=== PATIENT | male | born 1970 | race Caucasian/White ===

== ENCOUNTER 2021-01-31 06:10 | Day surgery (SDC) | payer BC ==
[2021-01-31] MEDS ORDERED: Lactated Ringers 1,000 ML IV SCH (06:30)
[2021-01-31] MEDS ORDERED: DIPRIVAN 200 MG/20 ML IV ONE ×2 (07:21→07:47)
[2021-01-31 08:58] VITALS: BP 141/79; PULSE 74; O2SAT 96
--- NOTE | 2021-01-31 14:41 | OP ---
SURGERY DATE: 01/31/2021 SURGERY TIME: 732 PREOPERATIVE DIAGNOSIS: 1. RECTAL PAIN. POSTOPERATIVE DIAGNOSIS: 1. EXTERNAL HEMORRHOIDS. 2. RECTAL POLYP X 2. PROCEDURE: 1. Colonoscopy. SURGEON: Dr. Casper Nuno. ANESTHESIA: MAC by Jonathan Medina CRNA. SPECIMENS: Two hot forceps polypectomies from the rectum. ESTIMATED BLOOD LOSS: Minimal. DESCRIPTION OF PROCEDURE: After informed written consent was obtained, the patient was taken to the endoscopy suite. He was placed in the left lateral decubitus position and anesthesia was titrated to the desired level of consciousness. Digital rectal exam showed significant external hemorrhoids, no internal lesions. The scope was then inserted in the rectum and sequentially the entire colonic mucosa was traversed. The level of the cecum was reached and verified with direct visualization of the ileocecal valve. Upon withdrawal, there were 2 small sessile polyps in the distal sigmoid/rectal region. Those were grasped with forceps, cauterized, and removed in their entirety with no bleeding. Prior to withdrawal, retroflexion was performed and showed minimal internal hemorrhoids. The scope was removed and the patient was transferred to the recovery room in good condition.
== END 2021-01-31 09:08 | disposition home or self-care (01) ==
LOC: SDC 06:10
PROVIDERS: ATTEND Family Medicine
DX: K64.4 Residual hemorrhoidal skin tags (principal); D12.8 Benign neoplasm of rectum
CPT/HCPCS: 88305; J2704

== ENCOUNTER 2022-11-20 13:06 | Day surgery (SDC) | payer BC ==
[2022-11-20] MEDS ORDERED: Sodium Chloride 0.9(Preservative Free) 10 ML IJ ONE (13:07)
[2022-11-20] MEDS ORDERED: DIPRIVAN 200 MG/20 ML IV ONE (13:07)
[2022-11-20] MEDS ORDERED: Lactated Ringers 1,000 ML IV ONE (13:07)
[2022-11-20] MEDS ORDERED: Depo-Medrol 40 MG/ML IM ONE (13:07)
--- NOTE | 2022-11-20 16:36 | XRAY ---
Indication: Right L3-L5 transforaminal [place]. Intraoperative fluoroscopy provided for 26 seconds. 5 digital spot images submitted for interpretation demonstrates posterior needle tip projecting over the expected right L3 and L4 nerve roots. Small amount of contrast injected for needle tip placement. Correlate with intraoperative findings/report.
--- NOTE | 2022-11-20 16:50 | XRAY ---
26 seconds of fluoroscopy was used in surgery for a right L3-L5 transforaminal [place].
== END 2022-11-20 14:53 | disposition home or self-care (01) ==
LOC: SDC-PAIN 13:06
PROVIDERS: ATTEND Psychiatry & Neurology Pain Medicine
DX: M54.16 Radiculopathy, lumbar region (principal); Z79.899 Other long term (current) drug therapy
CPT/HCPCS: 64483; 64484; 72100; 77003; J1030; J2704; Q9966